=== PATIENT | female | born 1975 | race Caucasian/White ===

== ENCOUNTER 2021-04-24 00:25 | Emergency (ER) | payer SELFPAY ==
[~2021-04-24] VITALS: Ht 170.2 cm; Wt 117.9 kg
--- NOTE | 2021-04-24 01:00 | ED Lower Extremity ---
General Chief Complaint: Lower Extremity Stated Complaint: BILATERL SWELLING FEET AND LEGS Source: patient Exam Limitations: no limitations History of Present Illness Date Seen by Provider: Apr 24, 2021 Time Seen by Provider: 00:45 Initial Comments 45-year-old female presents with intermittent swelling of bilateral lower extremities. Denies any injury or pain. Denies any shortness of air or cough or chest pain. No history of diabetes or kidney failure. No recent illness, fever chills. Swelling is actually better on arrival tonight. Has not called or seen her doctor regarding this complaint. Allergies and Home Medications Allergies Coded Allergies: No Known Drug Allergies (Unverified , 04/24/21) Patient Home Medication List Home Medication List Reviewed: Yes Review of Systems Constitutional: No dizziness, No fever, No malaise, No weakness Respiratory: No cough, No short of breath, No stridor, No wheezing Cardiovascular: No chest pain; edema; No palpitations, No syncope, No vascular heart diseas Gastrointestinal: No abdominal pain, No nausea, No vomiting Musculoskeletal: No back pain, No joint pain, No muscle pain, No neck pain Skin: No change in color, No rash Past Uxfzoed-Lyhack-Bahxcz Hx Past Med/Social Hx: Reviewed Nursing Past Med/Soc Hx Physical Exam Vital Signs Vital Signs - First Documented 04/24/21 00:42 Temp 36.2 Pulse 94 Resp 16 B/P (MAP) 117/92 (100) Pulse Ox 98 O2 Delivery Room Air Capillary Refill : Height, Weight, BMI Height: '" Weight: lbs. oz. kg; BMI Method: General Appearance: WD/WN, no apparent distress Cardiovascular: regular rate, rhythm, no edema, no JVD Respiratory: chest non-tender, lungs clear, normal breath sounds, no respiratory distress, no accessory muscle use Gastrointestinal: non tender, soft Back: normal inspection, no CVA tenderness Legs: bilateral leg non-tender, bilateral leg normal inspection, bilateral leg normal range of motion, bilateral leg no evidence of injury Knees: bilateral knee non-tender, bilateral knee normal inspection, bilateral knee normal range of motion, bilateral knee no evidence of injury Ankles: bilateral ankle non-tender, bilateral ankle normal inspection, bilateral ankle normal range of motion, bilateral ankle no evidence of injury Feet: bilateral foot non-tender, bilateral foot normal inspection, bilateral foot normal range of motion, bilateral foot no evidence of injury Neurologic/Psychiatric: no motor/sensory deficits, alert Skin: normal color, warm/dry Progress/Results/Core Measures Results/Orders Lab Results Laboratory Tests Test 04/24/21 00:55 Range/Units White Blood Count 8.8 4.3-11.0 10^3/uL Red Blood Count 3.99 L 4.35-5.85 10^6/uL Hemoglobin 9.6 L 11.5-16.0 G/DL Hematocrit 31 L 35-52 % Mean Corpuscular Volume 78 L 80-99 FL Mean Corpuscular Hemoglobin 24 L 25-34 PG Mean Corpuscular Hemoglobin Concent 31 L 32-36 G/DL Red Cell Distribution Width 13.8 10.0-14.5 % Platelet Count 460 H 130-400 10^3/uL Mean Platelet Volume 9.9 7.4-10.4 FL Immature Granulocyte % (Auto) 0 % Neutrophils (%) (Auto) 55 42-75 % Lymphocytes (%) (Auto) 32 12-44 % Monocytes (%) (Auto) 10 0-12 % Eosinophils (%) (Auto) 2 0-10 % Basophils (%) (Auto) 1 0-10 % Neutrophils # (Auto) 4.9 1.8-7.8 X 10^3 Lymphocytes # (Auto) 2.8 1.0-4.0 X 10^3 Monocytes # (Auto) 0.9 0.0-1.0 X 10^3 Eosinophils # (Auto) 0.2 0.0-0.3 10^3/uL Basophils # (Auto) 0.1 0.0-0.1 10^3/uL Immature Granulocyte # (Auto) 0.0 0.0-0.1 10^3/uL Sodium Level 137 135-145 MMOL/L Potassium Level 3.9 3.6-5.0 MMOL/L Chloride Level 104 98-107 MMOL/L Carbon Dioxide Level 25 21-32 MMOL/L Anion Gap 8 5-14 MMOL/L Blood Urea Nitrogen 16 7-18 MG/DL Creatinine 0.84 0.60-1.30 MG/DL Estimat Glomerular Filtration Rate > 60 BUN/Creatinine Ratio 19 Glucose Level 124 H 70-105 MG/DL Calcium Level 8.3 L 8.5-10.1 MG/DL Corrected Calcium 8.5 8.5-10.1 MG/DL Total Bilirubin 0.2 0.1-1.0 MG/DL Aspartate Amino Transf (AST/SGOT) 16 5-34 U/L Alanine Aminotransferase (ALT/SGPT) 11 0-55 U/L Alkaline Phosphatase 82 40-136 U/L Total Protein 6.4 6.4-8.2 GM/DL Albumin 3.7 3.2-4.5 GM/DL My Orders Orders - TANYA MONTANO DO Cbc With Automated Diff (04/24/21 01:10) Comprehensive Metabolic Panel (04/24/21 01:10) Vital Signs/I&O 04/24/21 00:42 Temp 36.2 Pulse 94 Resp 16 B/P (MAP) 117/92 (100) Pulse Ox 98 O2 Delivery Room Air Departure Impression Primary Impression: Edema of both legs Additional Impression: Anemia Qualified Codes: D64.9 - Anemia, unspecified Disposition: HOME, SELF-CARE Condition: Stable Departure-Patient Inst. Decision time for Depature: 00:59 Referrals: AYALA MATSON MD (PCP/Family) Primary Care Physician Patient Instructions: Dependent Edema (DC) Add. Discharge Instructions: Follow up with Dr Matson in 1 to 2 weeks for re-evaluation of your anemia & leg swelling. All discharge instructions reviewed with patient and/or family. Voiced understanding. TANYA MONTANO DO Apr 24, 2021 01:00
[2021-04-24 01:19] LABS: BASOPHILS % (AUTO) 1 % (0-10); EOSINOPHILS % (AUTO) 2 % (0-10); HEMATOCRIT 31 % (35-52); HEMOGLOBIN 9.6 G/DL (11.5-16.0); LYMPHOCYTES % (AUTO) 32 % (12-44); MEAN CORPUSCULAR HEMOGLOBIN 24 PG (25-34); MEAN CORPUSCULAR HGB CONC 31 G/DL (32-36); MEAN CORPUSCULAR VOLUME 78 FL (80-99); MEAN PLATELET VOLUME 9.9 FL (7.4-10.4); MONOCYTES % (AUTO) 10 % (0-12); NEUTROPHILS % (AUTO) 55 % (42-75); PLATELET COUNT 460 10^3/uL (130-400); WHITE BLOOD COUNT 8.8 10^3/uL (4.3-11.0)
[2021-04-24 01:20] LABS: BASOPHILS # (AUTO) 0.1 10^3/uL (0.0-0.1); BUN/CREATININE RATIO 19; CARBON DIOXIDE 25 MMOL/L (21-32); CHLORIDE 104 MMOL/L (98-107); CREATININE SERUM 0.84 MG/DL (0.60-1.30); EOSINOPHILS # (AUTO) 0.2 10^3/uL (0.0-0.3); GFR ESTIMATED > 60; GLUCOSE 124 MG/DL (70-105); LYMPHOCYTES # (AUTO) 2.8 X 10^3 (1.0-4.0); MONOCYTES # (AUTO) 0.9 X 10^3 (0.0-1.0); NEUTROPHILS # (AUTO) 4.9 X 10^3 (1.8-7.8); SODIUM 137 MMOL/L (135-145)
[2021-04-24 01:21] LABS: ALANINE AMINOTRANSFERASE 11 U/L (0-55); ALBUMIN 3.7 GM/DL (3.2-4.5); ALKALINE PHOSPHATASE 82 U/L (40-136); BILIRUBIN,TOTAL 0.2 MG/DL (0.1-1.0); CALCIUM 8.3 MG/DL (8.5-10.1); TOTAL PROTEIN 6.4 GM/DL (6.4-8.2)
[2021-04-24 01:23] LABS: POTASSIUM 3.9 MMOL/L (3.6-5.0)
[2021-04-24 01:38] VITALS: BP 104/64
== END 2021-04-24 01:38 | disposition home or self-care (01) ==
LOC: ER FS 00:30
DX: R60.0 Localized edema (principal); D64.9 Anemia, unspecified
CPT/HCPCS: 36415; 80053; 85025; 99283

== ENCOUNTER 2023-01-09 17:42 | Emergency (ER) | payer BC ==
[~2023-01-09] VITALS: Ht 170 cm; Wt 118.0 kg
--- NOTE | 2023-01-09 17:47 | ED Lower Extremity ---
General Stated Complaint: STEPPED ON NAIL, RIGHT FOOT Source: patient History of Present Illness Date Seen by Provider: Jan 09, 2023 Time Seen by Provider: 17:45 Initial Comments 47-year-old female presents with complaints of pain to her right foot and tingling into her toes. She had stepped on a nail while she was wearing [employer] around noon. She had gone to take a shower this evening and felt the foot was more swollen and painful, especially with bearing weight. She was unsure of her last tetanus shot. She has not tried taking any medicine for pain. She states it is a dull throbbing ache of a 3 or 4 if she is not bearing weight but it goes up to a 10 if she tries to stand on her foot. She denies any allergies to medications. Onset: this afternoon (Around noon) Pain/Injury Location: right foot Method of Injury: other (Stepped on nail) Modifying Factors: Worse With Movement (Movement and pressure such as walking makes it hurt more) Allergies and Home Medications Allergies Coded Allergies: No Known Drug Allergies (Unverified , 04/24/21) Patient Home Medication List Home Medication List Reviewed: Yes Cephalexin (Cephalexin) 500 Mg Capsule, 500 MG PO QID Prescribed by: VIMAL TILLMAN on 01/09/231809 Ciprofloxacin HCl (Ciprofloxacin HCl) 500 Mg Tablet, 500 MG PO BID Prescribed by: VIMAL TILLMAN on 01/09/231809 Review of Systems Constitutional: No chills, No fever EENTM: no symptoms reported Respiratory: no symptoms reported Cardiovascular: no symptoms reported Gastrointestinal: no symptoms reported Genitourinary: no symptoms reported Musculoskeletal: see HPI Skin: see HPI Psychiatric/Neurological: Anxiety Past Hzuckat-Onxoxx-Itfwgt Hx Seasonal Allergies Seasonal Allergies: No Past Medical History Section Respiratory: No Cardiac: Yes High Cholesterol, Hypertension Neurological: No Genitourinary: No Gastrointestinal: No Musculoskeletal: No Endocrine: No HEENT: No Cancer: No Psychosocial: No Integumentary: No Blood Disorders: No Physical Exam Vital Signs Vital Signs - First Documented 01/09/23 17:50 Temp 36.7 Pulse 110 Resp 18 B/P (MAP) 152/91 (111) Pulse Ox 98 O2 Delivery Room Air Capillary Refill : Height, Weight, BMI Height: '" Weight: lbs. oz. kg; 40.00 BMI Method: General Appearance: WD/WN, no apparent distress, obese Cardiovascular: normal peripheral pulses, regular rate, rhythm Feet: right foot pain (Puncture wound to the middle of the right foot just proximal to the third MTP joint.), right foot soft tissue tenderness, right foot swelling Neurologic/Tendon: normal sensation, normal motor functions, normal tendon functions Neurologic/Psychiatric: alert, oriented x 3 Skin: normal color, warm/dry Progress/Results/Core Measures Results/Orders My Orders Orders - VIMAL TILLMAN MD Foot 3 View Right (01/09/23 17:50) Dipht,Pertuss(Acell),Tet Adult (Boostrix (01/09/23 18:00) Ceftriaxone (Rocephin) (01/09/23 17:51) Ibuprofen Tablet (Motrin Tablet) (01/09/23 17:51) Lidocaine 1% Inj 20 Ml (Xylocaine 1% Inj (01/09/23 18:00) Ciprofloxacin Tablet (Cipro Tablet) (01/09/23 18:10) Medications Given in ED Current Medications Medications Dose Ordered Sig/Joshua Route Start Time Stop Time Status Last Admin Dose Admin Diphtheria/ Tetanus/Acell Pertussis 0.5 ml ONCE ONCE IM 01/09/23 18:00 01/09/23 18:01 DC 01/09/23 18:00 0.5 ML Lidocaine HCl 2.1 ml ONCE ONCE INJ 01/09/23 18:00 01/09/23 18:01 DC 01/09/23 17:59 2.1 ML Vital Signs/I&O 01/09/23 01/09/23 17:50 18:15 Temp 36.7 36.7 Pulse 110 110 Resp 18 18 B/P (MAP) 152/91 (111) 152/91 Pulse Ox 98 98 O2 Delivery Room Air Room Air Progress Progress Note #1: Progress Note Potential diagnosis of puncture wound, metatarsal fracture, foreign body, Update tetanus shot since she is unsure of her last 1. Ibuprofen 800 mg by mouth for pain since she has not taken anything for pain. Obtain x-rays of the right foot looking for possible foreign body. Have her soak the foot and Beta dine and water. Rocephin 1 g IM for potential infection from puncture wound. Progress Note #2: Time: 18:00 Progress Note My personal interpretation of the three-view films of her right foot show that she has no acute fracture and no obvious foreign body. We will proceed with antibiotic shot and tetanus booster here. Continue Augment in 875 mg p.o. twice daily for puncture wound. Counseled to check back with clinic and her primary care provider for continued concerns. Try to elevate her foot is much as possible. Take ibuprofen and acetaminophen as needed to help with pain. Diagnostic Imaging Diagonstic Imaging: Xray Plain Films/CT/US/NM/MRI: other (Right foot) Comments [facility], [place] NAME: MACARENA STEINBERG [facility] REC#: [id number] PT STATUS: DEP ER : 1975 PHYSICIAN: VIMAL TILLMAN MD ADMIT DATE: 01/09/23/ER FS Signed Date of Exam:01/09/23 FOOT 3 VIEW RIGHT EXAM: Foot 3 view right INDICATION: Right foot pain and trauma. Stepped on nail. COMPARISON: None. FINDINGS: No fracture or malalignment. No radiopaque foreign body. IMPRESSION: No acute radiographic finding in the right foot. Dictated by: Dictated on workstation # [id number] Dict: 01/09/231825 Trans: 01/09/232130 [facility] [id number] Interpreted by: DANTE DURAN MD Electronically signed by: DANTE DURAN MD 01/09/232130 Reviewed: Reviewed by Me (I reviewed the radiologist report at [id number]) Departure Impression Primary Impression: Puncture wound of right foot without foreign body Qualified Codes: S91.331A - Puncture wound without foreign body, right foot, initial encounter Additional Impression: Puncture wound of skin from metal nail Disposition: HOME, SELF-CARE Condition: Stable Departure-Patient Inst. Decision time for Depature: 18:13 Referrals: AYALA VEGA MD (PCP/Family) Primary Care Physician Patient Instructions: Wound Care ED Add. Discharge Instructions: Keep wound clean with soap and water. May apply antibiotic ointment and cover with bandaid. Change bandaid and dressing 2-3 times a day and as needed if it gets dirty. Try to elevate your foot is much as possible to help with pain and swelling. Take ibuprofen 800 mg every 8 hours as needed for pain. You may also take acetaminophen 650 mg every 6 hours as needed for pain. Take the full course of antibiotics to try and prevent infection from the puncture wound. Check back with the clinic for continued concerns Scripts Ciprofloxacin HCl (Ciprofloxacin HCl) 500 Mg Tablet 500 MG PO BID for puncture wound of foot for 7 Days, #14 TAB 0 Refills Prov: VIMAL TILLMAN MD 01/09/23 Cephalexin (Cephalexin) 500 Mg Capsule 500 MG PO QID for puncture wound foot for 7 Days, #28 CAP 0 Refills Prov: VIMAL TILLMAN MD 01/09/23 Work/School Note: Work Release Form Date Seen in the Emergency Department: Jan 09, 2023 Return to Work: Jan 11, 2023 Restrictions: No Restrictions VIMAL TILLMAN MD Jan 09, 2023 17:46
[2023-01-09] MEDS ORDERED: cefTRIAXone 1,000 MG VIAL IM STA (17:51)
[2023-01-09] MEDS ORDERED: IBUPROFEN 800 MG (MOTRIN) TAB PO STA (17:51)
[2023-01-09] MEDS ORDERED: LIDOCAINE 1% INJ 20 ML VIAL INJ ONE (18:00)
[2023-01-09] MEDS ORDERED: TETANUS,DIPTH,PERTUSS P/F (BOOSTRIX) 0.5 ML VIAL IM ONE (18:00)
[2023-01-09] MEDS ORDERED: CEPH500C PO (18:10)
[2023-01-09] MEDS ORDERED: CIPR500T5 PO (18:10)
[2023-01-09] MEDS ORDERED: CIPROFLOXACIN 500 MG (CIPRO) TABLET PO STA (18:10)
[2023-01-09 18:15] VITALS: BP 152/91
--- NOTE | 2023-01-09 18:29 | Diagnostic Imaging Report ---
EXAM: Foot 3 view right INDICATION: Right foot pain and trauma. Stepped on nail. COMPARISON: None. FINDINGS: No fracture or malalignment. No radiopaque foreign body. IMPRESSION: No acute radiographic finding in the right foot. Dictated by: Dictated on workstation # [id number]
== END 2023-01-09 18:19 | disposition home or self-care (01) ==
LOC: EDUNIT# 17:42 → ER FS 17:43
DX: S91.331A Puncture wound without foreign body, right foot, initial encounter (principal); E66.9 Obesity, unspecified; Z68.41 Body mass index [BMI] 40.0-44.9, adult; Z23 Encounter for immunization; W45.0XXA Nail entering through skin, initial encounter
CPT/HCPCS: 73630; 90715

== ENCOUNTER → 2023-04-22 | Outpatient (CLI) | payer BC ==
[~2023-04-22] MED LIST: CEPH500C PO; CIPR500T5 PO
--- NOTE | 2023-04-22 15:57 | Diagnostic Imaging Report ---
PROCEDURE: Pelvic comp/transvaginal sonogram. TECHNIQUE: Complete transabdominal and transvaginal pelvic ultrasound was performed. In addition, limited pelvic Doppler was performed. INDICATION: Abnormal uterine bleeding. Uterus is anteverted measuring 10.5 x 6.6 x 6.3 cm. Myometrium is heterogeneous. There is a questionable fibroid measuring 3.5 x 2.4 x 2.8 cm. Endometrium is 9 mm in thickness. Ovaries cannot be visualized. No adnexal mass or free fluid is detected. IMPRESSION: Enlarged uterus with probable 3.5 similar fibroid. Dictated by: Dictated on workstation # [id number]
== END ==
LOC: RAD 12:40
PROVIDERS: ATTEND Nurse Practitioner Women's Health
DX: N85.2 Hypertrophy of uterus (principal); N93.9 Abnormal uterine and vaginal bleeding, unspecified
CPT/HCPCS: 76830; 76856

== ENCOUNTER 2023-06-28 05:35 | Outpatient (CLI) | payer BC ==
[~2023-06-28] VITALS: Ht 170.2 cm; Wt 123.6 kg
[2023-06-29] MEDS ORDERED: LEVO75CA5 PO (19:09)
[2023-06-29] MEDS ORDERED: VNL75T PO (19:09)
[2023-06-29] MEDS ORDERED: LISI10TA25 PO (19:09)
[2023-06-29] MEDS ORDERED: ATOR10TA66 PO (19:09)
[2023-06-29] MEDS ORDERED: FERR-84 PO (19:09)
== END 2023-06-29 19:30 | disposition home or self-care (01) ==
LOC: PREOP 05:35
PROVIDERS: ATTEND Obstetrics & Gynecology
DX: Z01.818 Encounter for other preprocedural examination (principal)

== ENCOUNTER 2023-07-05 06:38 | Day surgery (SDC) | payer BC ==
[2023-07-05] VITALS (8 sets, daily range): BP systolic 111–156; BP diastolic 66–79
[~2023-07-05] VITALS: Ht 170 cm; Wt 123.6 kg
[~2023-07-05 06:38] MED LIST changes: +ATOR10TA66 PO; +FERR-84 PO; +LEVO75CA5 PO; +LISI10TA25 PO; +VNL75T PO
[2023-07-05] MEDS ORDERED: metroNIDAZOLE 500MG/100ML IVPB 100 ML IV ONE (07:15)
[2023-07-05] MEDS ORDERED: LACTATED RINGERS 1,000 ML 1,000 ML IV PRN (07:15)
[2023-07-05] MEDS ORDERED: ceFAZolin INJECTION 2,000 MG in NS (IVPB) 50 ML 50 ML IV ONE (07:15)
[2023-07-05] MEDS ORDERED: BUPIVACAINE 0.25% 30 ML VIAL ONE (07:23)
--- NOTE | 2023-07-05 07:28 | Progress Note-Pre Operative ---
Pre-Operative Progress Note Date of Available H&P: Jul 05, 2023 Date H&P Reviewed: Jul 05, 2023 Time H&P Reviewed: 07:25 History & Physical: H&P Reviewed, Patient Examed, No changes noted Pre-Operative Diagnosis: AUB, Menorrhagia MARIA E MENDOZA DO Jul 05, 2023 07:28
[2023-07-05] MEDS ORDERED: DOCUSATE SODIUM 100 MG CAPSULE PO PRN (07:30)
[2023-07-05] MEDS ORDERED: ZOLPIDEM 5 MG (AMBIEN) TAB PO PRN (07:30)
[2023-07-05] MEDS ORDERED: ANTACID SUSPENSION 30 ML UDC PO PRN (07:30)
[2023-07-05] MEDS ORDERED: HYDROcodone/ACETAMINOPHEN 7.5 MG/325 MG TABLET PO PRN (07:30)
[2023-07-05] MEDS ORDERED: IBUPROFEN 600 MG TABLET PO PRN (07:30)
[2023-07-05] MEDS ORDERED: BENZOCAINE LOZENGES 1 EACH MM PRN (07:30)
[2023-07-05] MEDS ORDERED: ONDANSETRON INJECTION 4 MG/2 ML (SDV) IV PRN (07:30)
[2023-07-05] MEDS ORDERED: SIMETHICONE 80 MG CHEWABLE TABLET PO PRN (07:30)
--- NOTE | 2023-07-05 07:32 | Discharge Inst-Women's Service ---
Discharge Inst-Women's Serv Depart Medication/Instructions New, Converted or Re-Newed RX: Transmitted to Pharmacy Problems Reviewed?: Yes Consults/Follow Up Additional Follow Up: Yes Orders/Referrals Dr. Foy in 7-10 days and in 8 weeks Activity Activity: Activity as Tolerated Driving Instructions: No Driving for 1 Week NO SMOKING: NO SMOKING Nothing Inside Vagina: No Douching, No [place], No Tampons Diet Discharge Diet: No Restrictions Symptoms to Report to : Bleeding Excessive, Pain Increased, Fever Over 101 Degrees F, Vaginal Bleeding Increase, Questions/Concerns For Any Problems or Questions: Contact Your Physician Skin/Wound Care Infection Signs and Symptoms: Increased Redness, Foul Odor of Wound, Increased Drainage, Skin Itchy or Has a Rash, Increased Swelling, Temperature Above 101 F Operative Area Clean and Dry: Keep Incision Clean/Dry Stitches/Demar/Dermabond: Dermabond, Care of Stitches Bathing Instructions: MARIA E Rasheed DO Jul 05, 2023 07:32
[2023-07-05 07:33] LABS: BASOPHILS # (AUTO) 0.1 10^3/uL (0.0-0.1); BASOPHILS % (AUTO) 1 % (0-10); EOSINOPHILS # (AUTO) 0.2 10^3/uL (0.0-0.3); EOSINOPHILS % (AUTO) 3 % (0-10); HEMATOCRIT 37 % (35-52); HEMOGLOBIN 11.9 g/dL (11.5-16.0); LYMPHOCYTES # (AUTO) 1.8 10^3/uL (1.0-4.0); LYMPHOCYTES % (AUTO) 28 % (12-44); MEAN CORPUSCULAR HEMOGLOBIN 27 pg (25-34); MEAN CORPUSCULAR HGB CONC 32 g/dL (32-36); MEAN CORPUSCULAR VOLUME 85 fL (80-99); MEAN PLATELET VOLUME 10.1 fL (9.0-12.2); MONOCYTES # (AUTO) 0.7 10^3/uL (0.0-1.0); MONOCYTES % (AUTO) 11 % (0-12); NEUTROPHILS # (AUTO) 3.7 10^3/uL (1.8-7.8); NEUTROPHILS % (AUTO) 56 % (42-75); PLATELET COUNT 438 10^3/uL (130-400); WHITE BLOOD COUNT 6.5 10^3/uL (4.3-11.0)
[2023-07-05] MEDS ORDERED: HYDR-34 PO (07:34)
[2023-07-05] MEDS: LACTATED RINGERS 1,000 ML 1,000 ML IV SCH ×3 (07:34→13:12)
[2023-07-05] MEDS ORDERED: DOCU100C37 PO (07:34)
[2023-07-05] MEDS ORDERED: IBUP-844 PO (07:34)
[2023-07-05] MEDS ORDERED: ONDANSETRON INJECTION 4 MG/2 ML (SDV) ONE (08:11)
[2023-07-05] MEDS ORDERED: proPOfol INJECTION 200 MG/20 ML VIAL IV ONE (08:11)
[2023-07-05] MEDS ORDERED: LIDOCAINE PF 2% 5 ML VIAL ONE (08:11)
[2023-07-05] MEDS ORDERED: GLYCOPYRROLATE INJ 0.2 MG/ML 2 ML VIAL ONE ×2 (08:11→08:12)
[2023-07-05] MEDS ORDERED: MIDAZOLAM INJ 2 MG/2 ML VIAL ONE (08:11)
[2023-07-05] MEDS ORDERED: dexAMETHasone INJ 10 MG/ML 1 ML VIAL ONE (08:11)
[2023-07-05] MEDS ORDERED: fentaNYL INJECTION 100 MCG/2 ML VIAL ONE ×2 (08:11→09:54)
[2023-07-05] MEDS ORDERED: ROCURONIUM 50 MG/5 ML VIAL IV ONE (08:12)
[2023-07-05] MEDS ORDERED: NEOSTIGMINE 1 MG/1ML 10 ML VIAL ONE (08:12)
[2023-07-05] MEDS ORDERED: BUPIVACAINE 0.25% 30 ML VIAL INJ ONE (09:37)
[2023-07-05] MEDS ORDERED: KETOROLAC INJ 30 MG/ML VIAL ONE (10:11)
[2023-07-05] MEDS: KETOROLAC INJ 30 MG/ML VIAL IVP PRN ×2 (10:14→16:55)
[2023-07-05] MEDS ORDERED: HYDROmorphone INJECTION 2 MG/ML VIAL IV ONE ×2 (10:15→11:45)
[2023-07-05] MEDS ORDERED: morphine INJ 10 MG/ML 1ML (SYR OR VIAL) IVP ONE (10:15)
[2023-07-05] MEDS ORDERED: ONDANSETRON INJECTION 4 MG/2 ML (SDV) IVP PRN (10:15)
[2023-07-05] MEDS ORDERED: morphine INJ 10 MG/ML 1ML (SYR OR VIAL) ONE (10:28)
[2023-07-05] MEDS ORDERED: SEVOFLURANE (ULTANE) 15 ML INHAL SOLN ONE (10:43)
--- NOTE | 2023-07-05 13:24 | Anesthesia-General Post-Op ---
General Patient Condition Mental Status/LOC: Same as Preop Cardiovascular: Satisfactory Nausea/Vomiting: Absent Respiratory: Satisfactory Pain: Controlled Complications: Absent Post Op Complications Complications None Follow Up Care/Instructions Patient Instructions None needed. Anesthesia/Patient Condition Patient Condition Patient was awake and doing well earlier in PACU with no complaints, stable vital signs, no apparent adverse anesthesia problems. No complications reported per nursing. PENG VANG DO Jul 05, 2023 13:24
--- NOTE | 2023-07-05 16:05 | OPERATIVE REPORT ---
DATE OF SERVICE: 07/05/2023 PREOPERATIVE DIAGNOSES: 1. A 47-year-old female with abnormal uterine bleeding. 2. Menorrhagia. 3. Dysmenorrhea. POSTOPERATIVE DIAGNOSES: 1. A 47-year-old female with abnormal uterine bleeding. 2. Menorrhagia. 3. Dysmenorrhea. PROCEDURE: Robotic-assisted total laparoscopic hysterectomy with bilateral salpingectomy. SURGEON: Seth Foy DO HEAD PACKAGER: Nelly Lowry DNP, who was necessary for manipulation and retraction throughout the procedure. ANESTHESIA: General endotracheal. ESTIMATED BLOOD LOSS: 50 mL. URINE OUTPUT: 100 mL clear at the end of the procedure. FLUIDS: 1200 mL lactated Ringer's solution. FINDINGS: Bulky hyperemic-appearing uterus. Bilateral fallopian tubes with evidence of prior tubal ligation with Filshie clips. Grossly normal-appearing bilateral ovaries. Grossly normal-appearing upper abdominal anatomy. Grossly normal-appearing external female genitalia. SPECIMENS SENT: Uterus and bilateral fallopian tubes. INDICATIONS FOR PROCEDURE: This is a 47-year-old female patient who was consulted to our office from the [facility] for abnormal bleeding. She was seen in the office by my nurse practitioner and my nurse practitioner offered hysterectomy after all other alternatives have been reviewed with the patient. We did endometrial biopsy in the office, which revealed no signs of hyperplasia or malignancy and discussed with the patient that this is a viable option to proceed with. Due to her heavy bleeding, the patient was highly adamant about continuing with this as soon as possible, so she was scheduled at the next earliest convenience. Consent was obtained in the preoperative area and after all of her questions were answered and risks were reviewed including risk of the surgery itself, recovery timeframe, risk from anesthesia and even , she signed the consent and the patient was taken to the operating room. OPERATIVE REPORT IN DETAIL: Once in the operating room, anesthesia was administered and found to be adequate. She was placed in dorsal lithotomy position, prepped and draped in normal sterile fashion. A timeout was performed. Hugo catheter was placed using sterile technique. A weighted speculum was inserted to the patient's vagina, which allowed me to visualize the cervix which was grasped at 12 o'clock position using 0 Vicryl suture to the anterior lip of the cervix. Once this is used as my retraction, I was then able to sound the uterine cavity depth, to be a depth of 9 cm. I selected an 8 cm JANNETTE uterine manipulator tip and a 3.5 cm colpotomy ring. The manipulator tip was advanced into the uterus and the balloon was deployed and the colpotomy ring was advanced around the vaginal fornix. I then removed all the other instruments from the patient's vagina and performed change of gloves. I turned my attention to the abdomen where subcostally at the midclavicular line on the left side, I introduced the Veress needle through the skin until intraperitoneal placement was confirmed using saline drop test. An opening pressure of 5 mmHg was noted. I proceeded with CO2 insufflation to maximum pressure of 15 mmHg, at which point I made a supraumbilical incision, this was an 8 mm incision with a knife and directed blunt laparoscopic da Jonah camera trocar through the incision until intraperitoneal placement was confirmed using the da Jonah laparoscope. There was no evidence of damage upon my entry site. A brief scan of the upper abdominal anatomy appeared to be grossly normal. The Veress was removed under direct visualization of laparoscope. I then had the patient placed in steep Trendelenburg where I am able to visualize all my pelvic anatomy as defined in my findings above. I placed 2 lateral trocars using both 8 mm trocars approximately 10 cm lateral to my supraumbilical trocar. Once both of these were in place, I brought in the da Jonah robot and docked in appropriate fashion. With a SynchroSeal device in left hand and monopolar reji in the right hand, I performed the following dissection bilaterally: Starting at the utero-ovarian ligament, I sealed and transected this using the SynchroSeal device. I then created a window in the mesosalpinx using monopolar reji and then took down the mesosalpinx using the SynchroSeal device, amputating the fallopian tube from its surrounding blood supply. I then grasped the round ligament which I sealed and transected using the SynchroSeal device. I then grasped the entire broad ligament which I sealed and transected using the SynchroSeal device. I used this down to the level of the lower uterine segment, at which point I the anterior and posterior leaflets of the broad ligament. The anterior leaflet was taken around the anterior vaginal fornix and the posterior leaflet was taken around the posterior vaginal fornix. This allowed me to skeletonize the uterine vessels laterally, which I sealed and transected using a SynchroSeal device. I then created a colpotomy at 12 o'clock position using monopolar reji and took this circumferentially around the vaginal fornix, amputating the cervix away from the vagina. The entire specimen was then removed through the vagina. I then closed the vaginal cuff using 2-0 V-Loc in a running fashion, after which there was no active bleeding noted from any of my dissection planes. I then undocked the da Jonah robot and proceeded with remainder of the case laparoscopically. Once again, I copiously irrigated the pelvis using normal saline. There was no active bleeding noted from any of my dissection planes. I placed Surgiflo hemostatic agent over all my planes of dissection to ensure excellent postoperative hemostasis. I then had the patient taken out of steep Trendelenburg where I removed the lateral trocars under direct visualization of laparoscope. The infraumbilical trocar was left in place to release the remainder of insufflation and to introduce 10 mL of 0.25% Marcaine in the peritoneal cavity for postoperative pain management. I then removed this trocar as well. The skin was reapproximated using 4-0 Monocryl and interrupted subcuticular stitches. Dermabond was applied to the incision and Band-aid was placed over the incision as well. Hugo catheter was left in place. The patient tolerated the procedure well and was taken to recovery area in stable condition. Lap and sponge counts were correct at the end of the procedure. Instrument counts were correct as well. Ancef 2 grams and 500 mg of Flagyl were given preoperatively for infection prophylaxis. Job ID: [id number] DocumentID: [id number] Dictated Date: 07/05/2023 11:22:21 Prosthetic Makeup Designer Date: 07/05/2023 16:03:00 Dictated By: DO LU GR
== END 2023-07-05 17:10 | disposition home or self-care (01) ==
LOC: SDC 06:38 → WS 10:41 → SDC 17:10
PROVIDERS: ATTEND Obstetrics & Gynecology
DX: D25.9 Leiomyoma of uterus, unspecified (principal); N80.03 Adenomyosis of the uterus; N93.9 Abnormal uterine and vaginal bleeding, unspecified; N92.0 Excessive and frequent menstruation with regular cycle; N94.6 Dysmenorrhea, unspecified; E66.01 Morbid (severe) obesity due to excess calories; Z28.310 Unvaccinated for COVID-19; Z98.51 Tubal ligation status; Z68.41 Body mass index [BMI] 40.0-44.9, adult
CPT/HCPCS: 36415; 84703; 85025; 86850; 86900; 86901; 87081; 88307